=== PATIENT | male | born 1970 | race Caucasian/White ===

== ENCOUNTER → 2017-03-10 | Outpatient (CLI) | payer BC ==
[~2017-03-10] MED LIST: MULT-506 PO
--- NOTE | 2017-03-10 09:14 | DIAGNOSTIC IMAGING REPORT ---
MRI LUMBAR SPINE W/O CONTRAST CLINICAL HISTORY: Progressive low back pain TECHNIQUE: Sagittal and axial T1, T2 and STIR images were obtained. COMPARISON STUDY: Outside conventional radiographic study the lumbar spine dated 02/23/2017 OBSERVATIONS: The vertebral bodies and posterior elements appear intact. There is no abnormal bony signal present to suggest a marrow replacement process. There is a 1 cm vertebral body hemangioma at the S1 level. L1-2: No disc protrusions or extrusions. No evidence of spinal canal or neural foraminal compromise. L2-3: No disc protrusions or extrusions. No evidence of spinal canal or neural foraminal compromise. L3-4: No disc protrusions or extrusions. No evidence of spinal canal or neural foraminal compromise. L4-5: There is an annular fissure and tiny central disc protrusion. There is minimal deformity of the anterior aspect the thecal sac. Significant spinal stenosis is not felt to be present. There is no foraminal narrowing L5-S1: There is a small broad-based central disc protrusion. There is no significant spinal stenosis. There is no significant foraminal narrowing. The conus medullaris and cauda equina appear normal. IMPRESSION: 1. Annular fissure and tiny central disc protrusion at the L4-5 level 2. Small broad-based central disc protrusion at the L5-S1 level. 3. No significant spinal or foraminal stenosis. Electronically signed by: Bryan Duarte M.D. 03/10/2017 9:12 AM Dictated Date/Time: 03/10/2017 9:02 AM
== END | disposition home or self-care (01) ==
LOC: C.MRI 08:06
PROVIDERS: ATTEND Orthopaedic Surgery Orthopaedic Surgery of the Spine
DX: M51.26 Other intervertebral disc displacement, lumbar region (principal)